=== PATIENT | female | born 1995 | race Caucasian/White ===

== ENCOUNTER 2016-10-18 14:19 | Emergency (ER) | payer OTHER ==
[~2016-10-18] VITALS: Ht 157.5 cm; Wt 60.0 kg
[~2016-10-18 14:19] MED LIST: CYCL5TAB PO; NAPR500 OR
[2016-10-18 14:27] VITALS: BP 108/74; PULSE 100; RESP 16; TEMP 97.9; O2SAT 100
[2016-10-18] MEDS ORDERED: METO25TA3 PO (14:37)
[2016-10-18] MEDS ORDERED: AMOX875T PO (14:37)
[2016-10-18] MEDS ORDERED: BIRTH CONTROL PO (14:37)
--- NOTE | 2016-10-18 14:45 | PD ---
HPI . ? reaction to amoxicillin Chief Complaint: Cold / Flu Symptoms Time Seen by Provider: 14:45 Travel History International Travel<30 days: No Contact w/Intl Traveler<30days: No Traveled to known affect area: No History of Present Illness HPI 21-year-old female with significant past medical history here with complaints of possible reaction to amoxicillin. Patient was seen in urgent care yesterday and given amoxicillin for acute sinusitis. She suggested she start taking the medication she develops some blood blisters in her mouth. She is here concerned with the medication and wanting to get a checkup. She still complaining of sinus pressure and no improvement in her symptoms. She denies any fever or chills. She is accompanied by her significant other. PFSH Past Medical History Cardiovascular Problems: Yes (PAC'S, PALPITATIONS) Diminished Hearing: No Immunizations Current: Yes Tetanus Vaccination: > 5 Years Influenza Vaccination: No ?: Not LMP: NOW Past Surgical History Surgical History: No Previous Surgery Social History Alcohol Use: No Tobacco Use: No Substance Use: No Allergies-Medications (Allergen,Severity, Reaction): Coded Allergies: No Known Allergies (Verified , 10/18/16) Reported Meds & Prescriptions Reported Meds & Active Scripts Active Magic Mouthwash Adult Liq (Multi-Ingredient Mouthwash/Gargle) 120 Ml Susp 5 Ml SWISH-SWAL ACHS Each 5mL contains: Nystatin 200,000units, Diphenhydramine 4.25mg, Viscous Lidocaine 10mg, Baum syrup 0.8 mL Flonase Nasal [place] (Fluticasone Nasal [place]) 50 Mcg/Act [place] 50 Mcg EACH NARE BID Reported Metoprolol Tartrate 25 Mg Tab 25 Mg PO DAILY [ Control] 1 Tab PO DAILY Amoxicillin 875 Mg Tab 875 Mg PO BID Review of Systems General / Constitutional: No: Fever Eyes: No: Visual changes HENT: Positive: Congestion, Other (oral ulcers), No: Headaches Cardiovascular: No: Chest Pain or Discomfort Respiratory: No: Shortness of Breath Gastrointestinal: No: Abdominal Pain Genitourinary: No: Dysuria Musculoskeletal: No: Pain Skin: No Rash Neurologic: No: Weakness Psychiatric: No: Depression Endocrine: No: Polydipsia Hematologic/Lymphatic: No: Easy Bruising Physical Exam Narrative GENERAL: AAO x 3, no acute distress, Well-nourished, well-developed patient. SKIN: Warm and dry. No visible rashes or bruising. no petechiae HEAD: Normocephalic and atraumatic. EYES: No scleral icterus. No injection or drainage. EOM intact, PERRLA ENT: No nasal drainage noted. Mucous membranes pink. Airway patent. aphthous ulcers on the tongue and roof of the mouth. maxillary sinus tenderness NECK: Supple, trachea midline. No JVD. CARDIOVASCULAR: Regular rate and rhythm without murmurs, gallops, or rubs. RESPIRATORY: Breath sounds equal bilaterally. No accessory muscle use. No rhonchi or rales. GASTROINTESTINAL: Abdomen soft, non-tender, nondistended. EXTREMITIES: No cyanosis or edema. BACK: Nontender without obvious deformity. No CVA tenderness. PSYCH: AAO x 3, normal affect. Data Data Last Documented VS Vital Signs Date Time Temp Pulse Resp B/P Pulse Ox O2 Delivery O2 Flow Rate FiO2 10/18/16 14:27 97.9 100 16 108/74 100 MDM Medical Decision Making Medical Screen Exam Complete: Yes Emergency Medical Condition: Yes Medical Record Reviewed: Yes Differential Diagnosis aphthous ulcers, sinusitis, less likely pna Narrative Course 21-year-old female with significant past medical history here with complaints of possible reaction to amoxicillin. Patient was seen in urgent care yesterday and given amoxicillin for acute sinusitis. She suggested she start taking the medication she develops some blood blisters in her mouth. She is here concerned with the medication and wanting to get a checkup. She still complaining of sinus pressure and no improvement in her symptoms. She denies any fever or chills. She is accompanied by her significant other. Patient seen and examined. She has aphthous ulcers on examination and acute sinusitis. She had some concerns for low platelet count, but I do not see any evidence of this on examination. I explained what petechiae look like and even used my phone to show her images. Recommended follow-up with her primary care provider if her symptoms do not improve in 3-5 days, or if she develops any other abnormality. Advised she has any significant issues come to the emergency room for further evaluation. In the meantime I'll provide her with Flonase for symptomatic relief of her sinus issues. I will also provide her with Magic mouthwash aphthous ulcers Patient verbalized understanding of instructions, questions were answered, and thanked me for their care. I advised them if their condition worsens, please return to the nearest emergency room for further care. Diagnosis Primary Impression: Sinusitis, acute Qualified Code: J01.00 - Acute maxillary sinusitis, recurrence not specified Additional Impression: Aphthae, oral Patient Instructions: General Instructions, Sinusitis (ED) Additional Instructions: Please return to emergency department if your symptoms return or worsen. Follow up with your primary care provider. Take medications as prescribed. If you develop worsening rash, shortness of breath or facial swelling, please go to the nearest emergency department You can continue the antibiotics until complete. Med/Other Pt SpecificInfo: Prescription(s) given Scripts Wjdtfpsh-Pohldtiorvavhhl-Euiyffzhj Liq (Magic Mouthwash Adult Liq)120 Ml Susp5 Ml SWISH-SWAL ACHS #120 ML Ref 0 Each 5mL contains: Nystatin 200,000units, Diphenhydramine 4.25mg, Viscous Lidocaine 10mg, Baum syrup 0.8 mL Prov:Lincoln Reid MD 10/18/16 Fluticasone Nasal [place] (Flonase Nasal [place])50 Mcg/Act Spray50 Mcg EACH NARE BID #1 BOTTLE Ref 0 Prov:Lincoln Reid MD 10/18/16 Disposition: 01 DISCHARGE HOME Condition: Stable Isabelle Hendricks Oct 18, 2016 14:45
[2016-10-18] MEDS ORDERED: MAGICADU2 SWISH-SWAL (14:55)
[2016-10-18] MEDS ORDERED: FLUT1SPR5 EACH NARE (14:55)
== END 2016-10-18 15:13 | disposition home or self-care (01) ==
LOC: PHEFT 14:19
DX: J01.90 Acute sinusitis, unspecified (principal); K12.0 Recurrent oral aphthae; R00.2 Palpitations
CPT/HCPCS: 99283